=== PATIENT | male | born 2000 | race Caucasian/White ===

== ENCOUNTER 2020-04-04 14:25 | Emergency (ER) | payer OTHER ==
[2020-04-04 15:05] VITALS: BP 150/117; PULSE 102; TEMP 99.5; BMI 18.6
--- NOTE | 2020-04-04 16:05 | PDOC ---
Documentation entered by Rivas Copeland SCRIBE, acting as scribe for Saud Bourne MD. Saud Bourne MD: This documentation has been prepared by the faisalibe, Rivas Copeland SCRIBE, under my direction and personally reviewed by me in its entirety. I confirm that the documentation accurately reflects all work, treatment, procedures, and medical decision making performed by me. History of Present Illness - General Chief Complaint: Pain, Acute Stated Complaint: L FLANK PAIN, BLOOD STREAKED EMESIS Time Seen by Provider: 04/04/20 14:39 History Source: Patient Exam Limitations: No Limitations - History of Present Illness Initial Comments: 04/04/20 16:02 The patient is a 19 year old male with a significant past medical history of HTN, fibromyalgia, bipolar disorder, anxiety, OCD, and insomnia with left suprapubic pain worsened in the left lower back that began last night which he describes as worsened with bending over. Patient reports palpitations described as an irregular beat which is sometimes associated with chest pain and numbness of the hands for the past fifteen days. Patient reports vomiting after taking excess doses of OTC N-acetylcysteine (to help with his psychiatric diagnoses). Patient reports recently taking magnesium for constipation. Of note, patient notes decreased sleep secondary to anxiety (normally sleeps during the day and awake at night). He denies any recent falls, testicular pain/swelling, or penile pain/swelling. Patient denies fever, chills, or shortness of breath. Social Hx: Patient denies drinking, or recreational drugs. Former smoker (few weeks). Surgical Hx: None reported Allergies: NKDA Medications: Clonidine, Gabapentin, Hydroxyzine, Lamictal, Klonopin PCP is Dr. Bar Thomas Past History - Medical History Allergies/Adverse Reactions: Allergies Allergy/AdvReac Type Severity Reaction Status Date / Time No Known Allergies Allergy Verified 04/04/20 14:35 Home Medications: Ambulatory Orders Clonidine HCl [Catapres] 0.1 mg PO BID 04/04/20 Gabapentin [Neurontin] 1,200 mg PO BID PRN 04/04/20 Hydroxyzine HCl 75 mg PO TID PRN 04/04/20 Lamotrigine [Lamictal] 200 mg PO BID 04/04/20 clonazePAM [Klonopin -] 1.5 mg PO DAILY 04/04/20 COPD: No Psychiatric Problems: Yes (ANXIETY & DEPRESSIION) Other medical history: FIBROMYALGIA - Psycho-Social/Smoking History Smoking History: Former smoker Have you smoked in the past 12 months: No Information on smoking cessation initiated: No - Substance Abuse Hx (Audit-C & DAST Scrn) How often the patient has a drink containing alcohol: Never Score: In Men: 4 or > Positive; In Women: 3 or > Positive: 0 Screen Result (Pos requires Nsg. Audit-10AR): Negative In the last yr the pt used illegal drug/Rx for NonMed reason: No Score: Yes response is considered Positive: 0 Screen Result (Positive result requires Nsg. DAST-10): Negative Review of Systems - Review of Systems Able to Perform ROS?: Yes Comments:: 04/04/20 16:03 ROS Constitutional - Pt denies Fever, Chills, weakness, HEENT: denies vision changes, sore throat Respiratory: Denies sob, cough, hemoptysis Cardiac: +chest pain, palpitations denies light headedness, leg swelling Abd/GI: +nausea, vomiting denies abd pain, blood per rectum, melena, diarrhea : +Left suprapubic pain. denies dysuria, frequency, discharge Musculoskeletal - +back pain Denies joint swelling skin - denies bruising, erythema, rash neurological: denies headache, numbness, focal weakness, tingling, ataxia, weakness hematologic: denies anemia, easy bruising, easy bleeding All Other Systems: Reviewed and Negative *Physical Exam - Vital Signs Last Vital Signs Temp Pulse Resp BP Pulse Ox 99.5 F 102 H 18 150/117 H 99 04/04/20 14:34 04/04/20 14:34 04/04/20 14:34 04/04/20 14:34 04/04/20 14:34 - Physical Exam 04/04/20 15:47 GENERAL: The patient is awake, alert, and fully oriented, Nontoxic - in no acute distress. HEAD: Normocephalic, atraumatic. EYES: extraocular movements intact, sclera anicteric, conjunctiva clear. ENT: Normal voice, Moist mucous membranes. NECK: Normal range of motion, supple LUNGS: Breath sounds equal, clear to auscultation bilaterally. No wheezes, no rhonchi, no rales. HEART: Regular rate and rhythm, normal S1 and S2 without murmur, rub or gallop. ABDOMEN: Soft, nontender, No guarding, no rebound. No CVA tenderness EXTREMITIES: Normal range of motion, no edema. BACK: No focal bony tenderness, no rashes, mild reproducible tendernesson palpation of L lumbar paraspinal muscles NEUROLOGICAL: No facial assymetry, Normal speech, moving all 4 extremties spontaneously and ysmmetrically PSYCH: Normal mood, normal affect. SKIN: Warm, Dry, normal turgor, ED Treatment Course - ADDITIONAL ORDERS Additional order review: Laboratory Results 04/04/20 14:40 Urine Color Yellow Urine Appearance Clear Urine pH 7.0 Urine Protein 1+ H Urine Glucose (UA) Negative Urine Ketones Trace Urine Blood Negative Urine Nitrite Negative Urine Bilirubin 1+ H Urine Urobilinogen 0.2 Ur Leukocyte Esterase Negative Medical Decision Making - Medical Decision Making 04/04/20 15:49 suspect MSK pain no systemic symtos to suggest infection or cord compression. no trauma by history or evidence of acute injury no hematuria, urine noted for +1 proteinuria - will have pt fu with his PMD for further evaluation of proteinuria will give pt tylenol for pain returnp recautiosns were discussed Discharge - Discharge Information Problems reviewed: Yes Clinical Impression/Diagnosis: Back pain Qualifiers: Back pain location: low back pain Chronicity: acute Back pain laterality: left Sciatica presence: without sciatica Qualified Code(s): M54.5 - Low back pain Condition: Good Disposition: HOME - Admission No - Follow up/Referral Referrals: [facility] [place] [place] [Provider Group] - Patient Discharge Instructions Patient Printed Discharge Instructions: DI for Low Back Pain Additional Instructions: Return to the emergency department immediately with ANY new, persistent or worsening symptoms including numbness, tingling, weakness, fevers or any other concerns. Take ibuprofen (400mg)/tylenol(650mg) every 6 hours for 2 days. Apply heat to your sore muscles. You MUST call and follow up with your doctor in 3-4 days for further evaluation of your symptoms. Your emergency department visit is not complete without a followup with your doctor for reevaluation.. Results were discussed with you. Please make sure your doctor reviews the results of your emergency evaluation. - Post Discharge Activity
[2020-04-04 16:34] LABS: URINE MUCUS 2+
== END 2020-04-04 16:10 | disposition home or self-care (01) ==
LOC: FER 14:25
DX: M54.5 Low back pain (principal)
CPT/HCPCS: 81003; 81015; 99283-25

== ENCOUNTER 2022-01-25 14:10 | Emergency (ER) | payer OTHER ==
[2022-01-25 14:55] VITALS: BP 157/100; TEMP 98.9; BMI 17.7
[2022-01-25 16:07] VITALS: PULSE 84
== END 2022-01-25 16:09 | disposition home or self-care (01) ==
LOC: FER 14:10
DX: R30.0 Dysuria (principal)
CPT/HCPCS: 81003; 87086; 99283-25

== ENCOUNTER 2024-04-18 12:24 | Emergency (ER) | payer OTHER ==
[2024-04-18 12:52] VITALS: BP 95/54; PULSE 60; RESP 18; TEMP 98.4; BMI 42.2
== END 2024-04-18 14:53 | disposition home or self-care (01) ==
LOC: FER 12:24
DX: S09.90XA Unspecified injury of head, initial encounter (principal); W22.8XXA Striking against or struck by other objects, initial encounter; Y92.531 Health care provider office as the place of occurrence of the external cause
CPT/HCPCS: 70450-TC; 99284-25

== ENCOUNTER 2024-06-09 18:27 | Emergency (ER) | payer OTHER ==
[2024-06-09 18:33] VITALS: BP 128/98; PULSE 84; RESP 16; TEMP 98.6; BMI 18.3
[2024-06-09 20:29] LABS: HEMATOCRIT 43.9 % (35.4-49); HEMOGLOBIN 14.5 G/dL (11.7-16.9); MCH 29.3 pg (25.7-33.7); MEAN CELL VOLUME 88.7 fl (80-96); MEAN PLT VOLUME 7.8 fl (7.5-11.1); PLATELET COUNT 240.1 10^3/uL (134-434); RBC 4.95 10^6/uL (4.00-5.60); RDW 14.1 % (11.9-15.9)
[2024-06-09 20:46] LABS: PLATELET ESTIMATE ADEQUATE
[2024-06-09 20:49] LABS: ALBUMIN 4.6 g/dl (3.4-5.0); BILIRUBIN,TOTAL 0.4 mg/dl (0.2-1); CALCIUM 9.5 mg/dl (8.5-10.1); CREATININE 0.8 mg/dl (0.6-1.3); MAGNESIUM 1.6 mg/dL (1.8-2.4); PHOSPHOROUS 3.1 (2.5-4.9); POTASSIUM 3.6 mmol/L (3.5-5.1); TOT PROT 6.9 g/dl (6.4-8.2)
== END 2024-06-09 22:21 | disposition home or self-care (01) ==
LOC: FER 18:27
DX: K59.00 Constipation, unspecified (principal); R10.9 Unspecified abdominal pain
CPT/HCPCS: 36415; 74176-TC; 80053; 83690; 83735; 84100; 85027; 99284-25

== ENCOUNTER 2024-06-18 14:20 | Emergency (ER) | payer OTHER ==
[2024-06-18 15:50] VITALS: BP 119/77; PULSE 65; RESP 18; TEMP 98.4; BMI 18.3
[2024-06-18] MEDS ORDERED: DOCUSATE SODIUM 100 MG CAPSULE (FP) PO ONE (18:11)
[2024-06-18] MEDS: SENNOSIDES/DOCUSATE COMBO (SENNA PLUS) TABLET (UD) PO ONE (18:20)
[2024-06-18] MEDS: METHYLNALTREXONE BROMIDE 8 MG/0.4 ML SYRINGE SQ ONE (18:23)
[2024-06-18] MEDS: POLYETHYLENE GLYCOL (HEALTHYLAX) 3350 17 GM PACKET PO ONE (18:24)
== END 2024-06-18 18:55 | disposition home or self-care (01) ==
LOC: FER 14:20
DX: K59.03 Drug induced constipation (principal)
CPT/HCPCS: 71045-TC-FY; 99283-25

== ENCOUNTER 2024-07-06 19:59 | Emergency (ER) | payer OTHER ==
[2024-07-06 20:07] VITALS: BP 144/92; PULSE 87; RESP 18; TEMP 97.3; BMI 18.3
== END 2024-07-06 21:36 | disposition home or self-care (01) ==
LOC: FER 19:59
DX: R07.89 Other chest pain (principal)
CPT/HCPCS: 71045-TC-FY; 93005; 99284-25